=== PATIENT | female | born 1985 | race Caucasian/White ===

== ENCOUNTER 2016-08-30 18:43 | Inpatient (IN) | payer OTHER ==
[2016-08-30] MEDS ORDERED: Ondansetron 4 MG/2 ML SDV IVPUSH PRN (19:21)
[2016-08-30] MEDS ORDERED: Lidocaine 1% 50 ML MDV INJECT ONE (19:21)
[2016-08-30] MEDS ORDERED: Nalbuphine 20 MG/1 ML Amp IVPUSH PRN (19:21)
[2016-08-30] MEDS ORDERED: Sodium Chloride 0.9% 10 ML Syringe FLUSH PRN (19:21)
[2016-08-30] MEDS ORDERED: diphenhydrAMINE 50 MG/ML SDV IVPUSH PRN (19:23)
[2016-08-30] MEDS ORDERED: ePHEDrine 50 MG/ML SDV IVPUSH PRN (19:23)
[2016-08-30] MEDS ORDERED: fentaNYL 100 MCG/2 ML SDV EPIDUR PRN (19:23)
--- NOTE | 2016-08-30 19:27 | PCM.PREANE ---
Preanesthetic Assessment - Anesthesia/Transfusion/Family Hx Anesthesia History: Prior Anesthesia Without Reaction Family History of Anesthesia Reaction: No Transfusion History: No Prior Transfusion(s) - Review of Systems General: No Symptoms Pulmonary: Shortness of Breath (due to baby) Cardiovascular: No Symptoms Gastrointestinal: No symptoms Neurological: No Symptoms Other: Reports: None - Physical Assessment Pulse: 96 O2 Sat by Pulse Oximetry: 98 Respiratory Rate: 20 Blood Pressure: 111/75 Height: 5 ft 2 in Weight: 74.48 kg ASA Class: 2 Mental Status: Alert & Oriented x3 Airway Class: Mallampati = 1 Dentition: Reports: Normal Dentition Thyro-Mental Finger Breadths: 3 Mouth Opening Finger Breadths: 3 ROM/Head Extension: Full Lungs: Clear to auscultation, Normal respiratory effort Cardiovascular: Regular Rate, Regular Rhythm - Lab Values: today platelet 179 - Allergies Allergies/Adverse Reactions: Allergies Allergy/AdvReac Type Severity Reaction Status Date / Time No Known Allergies Allergy Verified 08/10/16 09:38 - Blood Blood Available: No - Acknowledgements Anesthesia Type Planned: Epidural Pt an Appropriate Candidate for the Planned Anesthesia: Yes Alternatives and Risks of Anesthesia Discussed w Pt/Guardian: Yes Pt/Guardian Understands and Agrees with Anesthesia Plan: Yes PreAnesthesia Questionnaire Cardiovascular History: Reports: None Respiratory History: Reports: None Gastrointestinal History: Reports: GERD (with preg) : 3 (38 weeks) Para: 2 Musculoskeletal History: Reports: None Psychiatric History: Reports: None Oncologic (Cancer) History: Reports: None - Past Surgical History HEENT Surgical History: Reports: Oral Surgery - SUBSTANCE USE Smoking Status *Q: Current Some Day Smoker (2 cigs a day for 15 years- smokes more when not ) Tobacco Use Within Last Twelve Months: Cigarettes Second Hand Smoke Exposure: Yes Days Per Week of Alcohol Use: 0 (quit 6 months before preg) Recreational Drug Use History: No - HOME MEDS Home Medications: Home Meds Ferrous Sulfate [Iron] 325 mg PO DAILY 08/10/16 [History] Pnv No.122/Iron/Folic Acid [ Multi Tablet] 1 each PO DAILY 08/10/16 [ History]
[2016-08-30] MEDS ORDERED: Bupivacaine/fentaNYL/NS 100 ML Bag EPIDUR SCH (19:30)
[2016-08-30] MEDS ORDERED: Oxytocin/Lactated Ringers 10 UNIT/1,000 ML BAG IV SCH (19:45)
[2016-08-30] MEDS: Lactated Ringers 1,000 ML IV SCH ×3 (21:23→23:17)
--- NOTE | 2016-08-31 01:49 | PCM.LDHP ---
L&D History of Present Illness - General Date of Service: 08/31/16 Admit Problem/Dx: Admission Diagnosis/Problem Admission Diagnosis/Problem Source of Information: Patient History Limitations: Reports: No Limitations - History of Present Illness Introduction:: 31 year old here at 38w0d in active labor. Doing well. 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: Musculoskeletal History: Reports: None Psychiatric History: Reports: None Oncologic (Cancer) History: Reports: None - Past Surgical History HEENT Surgical History: Reports: Oral Surgery Social & Family History - Family History Family Medical History: Noncontributory - Tobacco Use Smoking Status *Q: Current Some Day Smoker (2 cigs a day for 15 years- smokes more when not ) Years of Tobacco use: 15 Packs/Tins Daily: 0 Second Hand Smoke Exposure: Yes - Caffeine Use Caffeine Use: Reports: Soda - Alcohol Use Days Per Week of Alcohol Use: 0 (quit 6 months before preg) - Recreational Drug Use Recreational Drug Use: No H&P Review of Systems - Review of Systems: Review Of Systems: See Below General: Reports: No Symptoms HEENT: Reports: No Symptoms Pulmonary: Reports: No Symptoms Cardiovascular: Reports: No Symptoms Gastrointestinal: Reports: No Symptoms Genitourinary: Reports: No Symptoms Musculoskeletal: Reports: No Symptoms Skin: Reports: No Symptoms Psychiatric: Reports: No Symptoms Neurological: Reports: No Symptoms Hematologic/Lymphatic: Reports: No Symptoms Immunologic: Reports: No Symptoms L&D Exam - Exam Exam: See Below - Vital Signs Vital Signs: Last Vital Signs Temp 36.6 C 08/30/16 19:21 Pulse 96 08/30/16 20:55 Resp 20 08/30/16 20:55 BP 111/75 08/30/16 20:55 Pulse Ox 98 08/30/16 20:55 Weight: 74.48 kg - OB Specific Contraction Intensity: Moderate to Strong Movement: Active Heart Tones: Present Heart Rate (FHR) Variability: Moderate (6-25 bmp) Presentation: Vertex - Gayle Score Gayle Score Cervix Position: Midposition Gayle Score Consistency: Medium Gayle Score Dilation: 3-4 cm Gayle Score Infant's Station: +1, +2 - Exam General: Alert, Oriented HEENT: PERRLA, Conjunctiva Clear, EACs Clear, EOMI, Hearing Intact, Mucosa Moist & [place], Nares Patent, Normal Nasal Septum, Posterior Pharynx Clear, TMs Clear Neck: Supple, Trachea Midline Lungs: Clear to Auscultation, Normal Respiratory Effort Cardiovascular: Regular Rate, Regular Rhythm GI/Abdominal Exam: Normal Bowel Sounds, Soft, Non-Tender, No Organomegaly, No Distention, No Abnormal Bruit, No Mass, Pelvis Stable Genitourinary: Normal external exam, Normal bimanual exam, Normal speculum exam Back Exam: Normal Inspection, Full Range of Motion Extremities: Normal Inspection, Normal Range of Motion, Non-Tender, No Pedal Edema, Normal Capillary Refill Skin: Warm, Dry, Intact Neurological: Cranial Nerves Intact, Reflexes Equal Bilateral Psychiatric: Alert, Normal Affect, Normal Mood - Patient Data Lab Results Last 24 hrs: Laboratory Results - last 24 hr 08/30/16 08/30/16 Range/Units 19:15 19:35 WBC 12.33 H (3.98-10.04) K/mm3 RBC 3.68 L (3.98-5.22) M/mm3 Hgb 11.9 (11.2-15.7) gm/L Hct 34.4 (34.1-44.9) % MCV 93.5 (79.4-94.8) fl MCH 32.3 H (25.6-32.2) pg MCHC 34.6 (32.2-35.5) g/dl RDW Std Deviation 42.3 (36.4-46.3) fL Plt Count 179 L (182-369) K/mm3 MPV 11.0 (9.4-12.3) fl Neut % (Auto) 67.9 (34.0-71.1) % Lymph % (Auto) 21.5 (19.3-51.7) % [place] % (Auto) 7.5 (4.7-12.5) % Eos % (Auto) 2.1 (0.7-5.8) Baso % (Auto) 0.3 (0.1-1.2) % Neut # (Auto) 8.36 H (1.56-6.13) K/mm3 Lymph # (Auto) 2.65 (1.18-3.74) K/mm3 [place] # (Auto) 0.93 H (0.24-0.36) K/mm3 Eos # (Auto) 0.26 (0.04-0.36) K/mm3 Baso # (Auto) 0.04 (0.01-0.08) K/mm3 Membrane Rupture Negative Result Diagrams: 08/30/16 19:35 Problem List Initiated/Reviewed/Updated: Yes Orders Last 24hrs: Active Orders 24 hr Category Date Time Status Activity as Tolerated [RC] PFP Care 08/30/16 19:21 Active Communication Order [RC] ASDIRECTED Care 08/30/16 19:21 Active Heart Tones [RC] ASDIRECTED Care 08/30/16 19:21 Active Notify Provider [RC] ASDIRECTED Care 08/30/16 19:23 Active Notify Provider [RC] PFP Care 08/30/16 19:21 Active Notify Provider [RC] PRN Care 08/30/16 19:21 Active Peripheral IV Care [RC] . DIRECTED Care 08/30/16 19:21 Active Vital Signs [RC] PER UNIT ROUTINE Care 08/30/16 19:21 Active Clear Liquid Diet [DIET] Diet 08/30/16 Breakfast Active Bupivacaine/fentaNYL/NS [fentaNYL/Bupivacaine/NS 2 MCG- Med 08/30/16 19:30 Active 0.125% 100 ML] 100 ml EPIDUR ASDIRECTED Lactated Ringers [Ringers, Lactated] 1,000 ml Med 08/30/16 19:30 Active IV ASDIRECTED Nalbuphine [Nubain] Med 08/30/16 19:21 Active 10 mg IVPUSH Q2H PRN Ondansetron [Zofran] Med 08/30/16 19:21 Active 4 mg IVPUSH Q4H PRN Oxytocin/Lactated Ringers [Pitocin in LR 10 Units/1,000 Med 08/30/16 19:45 Active ML] 10 unit in 1,000 ml IV TITRATE Sodium Chloride 0.9% [Saline Flush] Med 08/30/16 19:21 Active 10 ml FLUSH ASDIRECTED PRN diphenhydrAMINE [Benadryl] Med 08/30/16 19:23 Active 25 mg IVPUSH Q6H PRN ePHEDrine [ePHEDrine Sulfate] Med 08/30/16 19:23 Active 5 mg IVPUSH ASDIRECTED PRN fentaNYL [Sublimaze] Med 08/30/16 19:23 Active 100 mcg EPIDUR Q3H PRN Electronic Heart Tones Ext w TOCO [WOMSER] Oth 08/30/16 19:21 Ordered Routine Electronic Heart Tones Internal [WOMSER] Per Unit Oth 08/30/16 19:21 Ordered Routine Peripheral IV Insertion Adult [OM.PC] Routine Ot 08/30/16 19:21 Ordered Resuscitation Status Routine Resus Stat 08/30/16 19:21 Ordered Medication Orders Diphenhydramine HCl (Benadryl) 25 mg IVPUSH Q6H PRN PRN Reason: pruritis Ephedrine Sulfate (Ephedrine Sulfate) 5 mg IVPUSH ASDIRECTED PRN PRN Reason: Hypotension Fentanyl (Sublimaze) 100 mcg EPIDUR Q3H PRN PRN Reason: Pain Last Admin: 08/30/16 22:44 Dose: 100 mcg Fentanyl/Bupivacaine HCl (Fentanyl/Bupivacaine/Ns 2 Mcg-0.125% 100 Ml) 100 ml EPIDUR ASDIRECTED CHAZ Last Admin: 08/30/16 22:44 Dose: 100 ml Lactated Ringer's (Ringers, Lactated) 1,000 mls @ 100 mls/hr IV ASDIRECTED CHAZ Last Admin: 08/30/16 23:17 Dose: 100 mls/hr Infusion: 08/30/16 23:17 Dose: 500 mls/hr Admin: 08/30/16 22:33 Dose: 500 mls/hr Infusion: 08/30/16 22:33 Dose: 500 mls/hr Admin: 08/30/16 21:23 Dose: 500 mls/hr Oxytocin/Lactated Ringer's (Pitocin In Lr 10 Units/1,000 Ml) 10 unit in 1,000 mls @ 12 mls/hr IV TITRATE CHAZ; 2 MUNITS/MIN PRN Reason: Protocol Last Titration: 08/30/16 23:15 Dose: 6 munits/min, 36 mls/hr Titration: 08/30/16 22:45 Dose: 4 munits/min, 24 mls/hr Admin: 08/30/16 21:34 Dose: 2 munits/min, 12 mls/hr Nalbuphine HCl (Nubain) 10 mg IVPUSH Q2H PRN PRN Reason: Pain (moderate 4-6) Ondansetron HCl (Zofran) 4 mg IVPUSH Q4H PRN PRN Reason: Nausea/Vomiting Sodium Chloride (Saline Flush) 10 ml FLUSH ASDIRECTED PRN PRN Reason: Keep Vein Open Assessment/Plan Comment:: Term labor. Desires epidural. Anticipate .
[2016-08-31] MEDS ORDERED: Benzocaine/Menthol 20%-0.5% Spray 56 GM Canister TOP PRN (02:30)
[2016-08-31] MEDS ORDERED: Witch Hazel Medicated Pads 100/Jar TOP PRN (02:30)
[2016-08-31] MEDS ORDERED: Ibuprofen 600 MG Tab PO PRN (02:30)
[2016-08-31] MEDS ORDERED: Lanolin 100% Cream 7 GM Tube TOP PRN (02:30)
[2016-08-31] MEDS ORDERED: Docusate Sodium 100 MG Cap PO PRN (02:30)
--- NOTE | 2016-08-31 08:30 | PCM48HPAN ---
Post Anesthesia Note - EVALUATION WITHIN 48HRS OF ANESTHETIC Vital Signs in Normal Range: Yes Patient Participated in Evaluation: Yes Respiratory Function Stable: Yes Airway Patent: Yes Cardiovascular Function Stable: Yes Hydration Status Stable: Yes Pain Control Satisfactory: Yes Nausea and Vomiting Control Satisfactory: Yes Mental Status Recovered: Yes - COMMENTS/OBSERVATIONS Free Text/Narrative:: Pt and baby both doing well this morning. reports full resolution of epidural. worked well. no f/c, n/v. did have some itching overnight. now resolved. ambulating, taking po,
[2016-09-01 03:36] VITALS: BP 101/66
--- NOTE | 2016-09-01 09:08 | PCM.DCSUM1 ---
Discharge Summary - Hospital Course Brief History: Admitted in active labor. - Discharge Data Discharge Date: 09/01/16 Discharge Disposition: Home, Self-Care 01 Condition: Good - Discharge Diagnosis/Problem(s) (1) care and examination SNOMED Code(s): 737917662, [id number], [id number] ICD Code: Z39.2 - ENCOUNTER FOR ROUTINE FOLLOW-UP Status: Acute Current Visit: Yes - Patient Summary/Data Hospital Course: Admitted in labor. Unremarkable delivery and course. - Patient Instructions Diet: Usual Diet as Tolerated Activity: No Strenuous Activities Driving: May Drive Today Showering/Bathing: May Shower Notify Provider of: Fever, Increased Pain, Swelling and Redness, Drainage, Nausea and/or Vomiting - Discharge Plan Home Medications: Home Meds Ferrous Sulfate [Iron] 325 mg PO DAILY 08/10/16 [History] Pnv No.122/Iron/Folic Acid [ Multi Tablet] 1 each PO DAILY 08/10/16 [ History] Patient Handouts: Smoking Hazards, Home Care Instructions for Mom, Smoking Cessation, Tips for Success - Discharge Summary/Plan Comment DC Time >30 min.: No - Patient Data Vitals - Most Recent: Last Vital Signs Temp 36.7 C 09/01/16 02:55 Pulse 51 L 09/01/16 02:55 Resp 12 09/01/16 02:55 BP 101/66 09/01/16 02:55 Pulse Ox 99 09/01/16 02:55 Weight - Most Recent: 74.48 kg I&O - Last 24 hours: Intake & Output 08/31/16 09/01/16 09/01/16 22:59 06:59 14:59 Intake Total 360 Balance 360 Med Orders - Current: Current Medications Benzocaine/Menthol (Dermoplast Pain Relief Dendron) 0 gm TOP ASDIRECTED PRN PRN Reason: Perineal Comfort Measure Docusate Sodium (Colace) 100 mg PO BID PRN PRN Reason: Constipation Emollient Ointment (Lansinoh Hpa) 0 gm TOP ASDIRECTED PRN PRN Reason: Sore Nipples Ibuprofen (Motrin) 600 mg PO Q6H PRN PRN Reason: Mild pain or fever Last Admin: 08/31/16 17:02 Dose: 600 mg Witch [place] (Tucks) 1 pad TOP ASDIRECTED PRN PRN Reason: Hemorrhoid pain Discontinued Medications Diphenhydramine HCl (Benadryl) 25 mg IVPUSH Q6H PRN PRN Reason: pruritis Ephedrine Sulfate (Ephedrine Sulfate) 5 mg IVPUSH ASDIRECTED PRN PRN Reason: Hypotension Fentanyl (Sublimaze) 100 mcg EPIDUR Q3H PRN PRN Reason: Pain Last Admin: 08/30/16 22:44 Dose: 100 mcg Fentanyl/Bupivacaine HCl (Fentanyl/Bupivacaine/Ns 2 Mcg-0.125% 100 Ml) 100 ml EPIDUR ASDIRECTED CHAZ Last Admin: 08/30/16 22:44 Dose: 100 ml Lactated Ringer's (Ringers, Lactated) 1,000 mls @ 100 mls/hr IV ASDIRECTED CHAZ Last Admin: 08/30/16 23:17 Dose: 100 mls/hr Oxytocin/Lactated Ringer's (Pitocin In Lr 10 Units/1,000 Ml) 10 unit in 1,000 mls @ 12 mls/hr IV TITRATE CHAZ; 2 MUNITS/MIN PRN Reason: Protocol Last Titration: 08/30/16 23:15 Dose: 6 munits/min, 36 mls/hr Lidocaine HCl (Xylocaine 1%) 50 ml INJECT ONETIME ONE Stop: 08/30/16 19:22 Last Admin: 08/31/16 07:58 Dose: Not Given Nalbuphine HCl (Nubain) 10 mg IVPUSH Q2H PRN PRN Reason: Pain (moderate 4-6) Ondansetron HCl (Zofran) 4 mg IVPUSH Q4H PRN PRN Reason: Nausea/Vomiting Sodium Chloride (Saline Flush) 10 ml FLUSH ASDIRECTED PRN PRN Reason: Keep Vein Open *Q Meaningful Use (DIS) - VTE *Q VTE Criteria *Q: - Stroke *Q Stroke Criteria *Q: - AMI *Q AMI Criteria *Q:
== END 2016-09-01 12:00 | disposition home or self-care (01) | DRG 775 ==
LOC: JD.OBCHECK 18:43 → JD.OB 18:47 → JD.OBCHECK 21:27 → JD.OB 21:28 → OBSVTOIN 08-31 01:33 → JD.OB 08-31 01:52
PROVIDERS: ADMIT Obstetrics & Gynecology; ATTEND Obstetrics & Gynecology
PROC: 10E0XZZ Delivery of Products of Conception, External Approach (ICD-10-PCS; principal; 2016-08-31)
PROC: 00HU33Z Insertion of Infusion Device into Spinal Canal, Percutaneous Approach (ICD-10-PCS; 2016-08-31)
PROC: 3E0R3CZ (ICD-10-PCS; 2016-08-31)
DX: O99.334 Smoking (tobacco) complicating childbirth (principal); F17.210 Nicotine dependence, cigarettes, uncomplicated; O77.0 Labor and delivery complicated by meconium in amniotic fluid; Z3A.38 38 weeks gestation of pregnancy; Z37.0 Single live birth
CPT/HCPCS: 01967; 36415; 84112; 85025; A9270-GY; J2590; J3010; J7120